=== PATIENT | male | born 1975 | race Caucasian/White ===

== ENCOUNTER 2016-12-27 09:39 | Inpatient (IN) | payer OTHER ==
[2016-12-27 10:54] VITALS: BMI 22.6
--- NOTE | 2016-12-27 12:40 | HP ---
COWS - Scale Resting Pulse: 0= [place] 80 or Below Sweatin= Chills/Flushing Restless Observation: 3= Extraneous Movement Pupil Size: 2= Moderately Dilated Bone or Joint Aches: 2= Severe Diffuse Aches Runny Nose/ Eye Tearin= Nasal Congestion GI Upset > 30mins: 1= Stomach Cramp Tremor Observation: 2= Slight Tremor Visible Yawning Observation: 2= >3x During Session Anxiety or Irritability: 2=Irritable/Anxious Goose Flesh Skin: 0=Smooth Skin COWS Score: 16 Admission ROS BHS - HPI Chief Complaint: DETOX TX FOR HEROIN DEPENDENCE Allergies/Adverse Reactions: Allergies Allergy/AdvReac Type Severity Reaction Status Date / Time No Known Allergies Allergy Verified 12/27/16 11:25 History of Present Illness: 41 Y/O H/M WITH A HX OF HEROIN AND COCAINE DEPENDENCE SEEKING DETOX TX Exam Limitations: No Limitations - Ebola screening Have you traveled outside of the country in the last 21 days: No Have you had contact with anyone from an Ebola affected area: No Have you been sick,other than usual withdrawal symptoms: No - Review of Systems Constitutional: Chills, Loss of Appetite, Night Sweats, Changes in sleep, Unintentional Wgt. Loss EENT: reports: Blurred Vision, Tearing, Nose Congestion, Dental Problems Respiratory: reports: No Symptoms reported Cardiac: reports: Lightheadedness GI: reports: Constipated, Diarrhea, Nausea, Poor Fluid Intake, Vomiting : reports: No Symptoms Reported Musculoskeletal: reports: Back Pain, Joint Pain, Muscle Pain Integumentary: reports: Bruising (RIGHT ELBOW IVD INJ SITE) Neuro: reports: Headache, Unsteady Gait, Dizziness Endocrine: reports: No Symptoms Reported Hematology: reports: No Symptoms Reported Psychiatric: reports: Orientated x3, Anxious Other Systems: Reviewed and Negative Patient History - Patient Medical History Hx Anemia: No Hx Asthma: No Hx Chronic Obstructive Pulmonary Disease (COPD): No Hx Cardiac Disorders: No Hx Hypertension: No Hx Hypercholesterolemia: No HX Cerebrovascular Accident: No Hx Seizures: No Hx Diabetes: No Hx Gastrointestinal Disorders: No Hx Genitourinary Disorders: No Hx Sexually Transmitted Disorders: No Hx Renal Disease (ESRD): No Hx Thyroid Disease: No Hx Human Immunodeficiency Virus (HIV): No (DENIES) Hx Hepatitis C: No Hx Depression: No Hx Suicide Attempt: No (DENIES) Hx Bipolar Disorder: No Hx Schizophrenia: No - Patient Surgical History Past Surgical History: No Hx Neurologic Surgery: No Hx Cataract Extraction: No Hx Cardiac Surgery: No Hx Lung Surgery: No Hx Breast Surgery: No Hx Breast Biopsy: No Hx Abdominal Surgery: No Hx Appendectomy: No Hx Cholecystectomy: No Hx Genitourinary Surgery: No Hx Orthopedic Surgery: No Anesthesia Reaction: No - PPD History Previous Implant?: Yes Documented Results: Negative w/o proof Implanted On Prior [facility] Admission?: No PPD to be Administered?: Yes - Reproductive History Patient is a Female of Child Bearing Age (11 -55 yrs old): No (MALE) - Smoking Cessation Smoking history: Current every day smoker Have you smoked in the past 12 months: Yes Aproximately how many cigarettes per day: 20 Hx Chewing Tobacco Use: No Initiated information on smoking cessation: Yes 'Breaking Loose' booklet given: 12/27/16 - Substance & Tx. History Hx Alcohol Use: No (DENIES) Hx Substance Use: Yes (HEROIN/COCAINE) Substance Use Type: Cocaine, Heroin Hx Substance Use Treatment: Yes ([facility]) - Substances Abused Heroin Route: Injection Frequency: Daily Amount used: 8 bags Age of first use: 16 Date of Last Use: 12/26/16 Family Disease History - Family Disease History Family History: Denies Admission Physical Exam BHS - Vital Signs Vital Signs: Vital Signs - 24 hr 12/27/16 10:53 Temperature 97.2 F L Pulse Rate 76 Respiratory 18 Rate Blood Pressure 140/73 - Physical General Appearance: Yes: Moderate Distress, Thin, Irritable, Anxious HEENTM: Yes: EOMI, Normocephalic, AGUS, Pharynx Normal, Nasal Congestion Respiratory: Yes: Chest Non-Tender, Lungs Clear, Normal Breath Sounds, No Respiratory Distress Neck: Yes: Supple, Trachea in good position Breast: Yes: Breast Exam Deferred Cardiology: Yes: Regular Rhythm, Regular Rate, S1, S2 Abdominal: Yes: Normal Bowel Sounds, Non Tender, Flat, Soft Genitourinary: Yes: Other (N/C) Back: Yes: Within Normal Limits Musculoskeletal: Yes: full range of Motion, Gait Steady Extremities: Yes: Normal Range of Motion, Non-Tender Neurological: Yes: [employer] II-XII NML intact, Fully Oriented, Alert Integumentary: Yes: Dry, Warm, Track Long (RIGHT ELBOW-) - Diagnostic (1) Opioid dependence with withdrawal Current Visit: Yes Status: Acute (2) Cocaine dependence, uncomplicated Current Visit: Yes Status: Acute (3) Track long due to intravenous drug abuse Current Visit: Yes Status: Acute Cleared for Admission [facility] - Detox or Rehab [facility] Level of Care: Medically Managed Detox Regimen/Protocol: Methadone [facility] Breath Alcohol Content Breath Alcohol Content: 0 Urine Drug Screen - Results Drug Screen Negative: No Urine Drug Screen Results: YAREYL-Cocaine, OPI-Opiates, MTD-Methadone
[2016-12-27] MEDS ORDERED: MAGNESIUM CITRATE 300 ML BOTTLE PO PRN (12:47)
[2016-12-27] MEDS ORDERED: diphenhydrAMINE HCL 50 MG CAPSULE PO PRN (12:47)
[2016-12-27] MEDS ORDERED: MAGNESIUM HYDROX 2400MG/30ML ORAL SUSPENSION 30 ML CUP PO PRN (12:47)
[2016-12-27] MEDS ORDERED: hydrOXYzine PAMOATE 25 MG CAPSULE (FP) PO PRN (12:47)
[2016-12-27] MEDS ORDERED: P-EPHED 60MG/TRIPROLIDI 2.5MG TABLET PO PRN (12:47)
[2016-12-27] MEDS ORDERED: NICOTINE POLACRILEX 4 MG GUM BUC PRN (12:47)
[2016-12-27] MEDS ORDERED: MENTHOL/PHENOL 1 EACH UD MM PRN (12:47)
[2016-12-27] MEDS ORDERED: ACETAMINOPHEN 325 MG TABLET (FP) PO PRN (12:47)
[2016-12-27] MEDS ORDERED: guaiFENesin/D-METHORPHAN HB 10 ML UNIT-DOSE CUPS PO PRN (12:47)
[2016-12-27] MEDS ORDERED: LOPERAMIDE HCL 2 MG CAPSULE PO PRN (12:47)
[2016-12-27] MEDS ORDERED: IBUPROFEN 400 MG TABLET (FP) PO PRN (12:47)
[2016-12-27] MEDS ORDERED: MAG HYDROX/AL HYDROX/SIMETH 30 ML UNIT-DOSE CUP PO PRN (12:47)
[2016-12-27] MEDS ORDERED: METHADONE HCL 10 MG TABLET (FOR DETOX USE ONLY) PO ONE ×2 (13:54→23:00)
[2016-12-27] MEDS: diazePAM 5 MG TABLET PO PRN ×2 (14:01→22:42)
[2016-12-27] MEDS: NICOTINE 21 MG/24 HOURS TOPICAL PATCH TD SCH (14:05)
[2016-12-27 19:10] LABS: URINE APPEARANCE CLEAR; URINE BILIRUBIN NEGATIVE (NEGATIVE); URINE BLOOD NEGATIVE (NEGATIVE); URINE COLOR YELLOW; URINE GLUCOSE (UA) NEGATIVE (NEGATIVE); URINE KETONE NEGATIVE (NEGATIVE); URINE LEUK ESTERASE NEGATIVE (NEGATIVE); URINE NITRITE NEGATIVE (NEGATIVE); URINE UROBILINOGEN 2.0 E.U/dl E.U./dl (0.2-1.0)
[2016-12-27 19:18] LABS: URINE PROTEIN 1+ (NEGATIVE)
[2016-12-27] MEDS: THIAMINE HCL 100 MG TABLET (FP) PO SCH (22:42)
[2016-12-28 09:50] LABS: MCH 28.9 pg (25.7-33.7); MCHC 33.2 g/dl (32.0-35.9); MEAN CELL VOLUME 87.1 fl (80-96); MEAN PLT VOLUME 8.9 fl (7.5-11.1); PLATELET COUNT 268 K/MM3 (134-434); WHITE BLOOD COUNT 10.9 K/mm3 (4.0-10.0)
[2016-12-28] MEDS ORDERED: METHADONE HCL 10 MG TABLET (FOR DETOX USE ONLY) PO ONE (10:00)
[2016-12-28] MEDS: PRENATAL VITAMINS W/ FOLIC ACID TABLET (FP) PO SCH (10:21)
[2016-12-28] MEDS: NICOTINE 21 MG/24 HOURS TOPICAL PATCH TD SCH (10:21)
[2016-12-28 10:23] LABS: ALBUMIN 4.1 g/dl (3.4-5.0); ALK PHOS 97 U/L (45-117); ANION GAP 10 (8-16); BILIRUBIN,TOTAL 0.8 mg/dL (0.2-1.0); CALCIUM 9.3 mg/dL (8.5-10.1); CO2 31 mmol/L (21-32); COCKROFT - GAULT 96.15; CREATININE 0.9 mg/dL (0.7-1.3); GLUCOSE,RANDOM 106 mg/dL (74-106); SGOT/AST 15 U/L (15-37); SGPT/ALT 17 U/L (12-78); TOT PROT 7.3 g/dl (6.4-8.2)
--- NOTE | 2016-12-28 10:28 | PN ---
BHS COWS - Scale Resting Pulse: 1= [place] 81-100 Sweatin= Chills/Flushing Restless Observation: 3= Extraneous Movement Pupil Size: 2= Moderately Dilated Bone or Joint Aches: 4=Acute Joint/Muscle Pain Runny Nose/ Eye Tearin= Nasal Congestion GI Upset > 30mins: 1= Stomach Cramp Tremor Observation of Outstretched Hands: 1= Tremor [place], Not Seen Yawning Observation: 1= 1-2x During Session Anxiety or Irritability: 1=Feels Anxious/Irritable Goose Flesh Skin: 0=Smooth Skin COWS Score: 16 S Progress Note (SOAP) Subjective: ANXIETY,SWEATS/CHILLS,FATIGUE. Objective: 12/28/16 10:29 Vital Signs Temperature 98.5 F 12/28/16 10:14 Pulse Rate 84 12/28/16 10:14 Respiratory Rate 20 12/28/16 10:14 Blood Pressure 140/93 12/28/16 10:14 O2 Sat by Pulse Oximetry (%) Laboratory Last Values WBC 10.9 K/mm3 (4.0-10.0) H 12/28/16 06:00 RBC 4.34 M/mm3 (4.00-5.60) 12/28/16 06:00 Hgb 12.5 GM/dL (11.7-16.9) 12/28/16 06:00 Hct 37.8 % (35.4-49) 12/28/16 06:00 MCV 87.1 fl (80-96) 12/28/16 06:00 MCHC 33.2 g/dl (32.0-35.9) 12/28/16 06:00 RDW 14.0 % (11.9-15.9) 12/28/16 06:00 Plt Count 268 K/MM3 (134-434) 12/28/16 06:00 MPV 8.9 fl (7.5-11.1) 12/28/16 06:00 Sodium 142 mmol/L (136-145) 12/28/16 06:00 Potassium 4.1 mmol/L (3.5-5.1) 12/28/16 06:00 Chloride 101 mmol/L (98-107) 12/28/16 06:00 Carbon Dioxide 31 mmol/L (21-32) 12/28/16 06:00 Anion Gap 10 (8-16) 12/28/16 06:00 BUN 14 mg/dL (7-18) 12/28/16 06:00 Creatinine 0.9 mg/dL (0.7-1.3) 12/28/16 06:00 Creat Clearance w eGFR > 60 (>60) 12/28/16 06:00 Random Glucose 106 mg/dL (74-106) 12/28/16 06:00 Calcium 9.3 mg/dL (8.5-10.1) 12/28/16 06:00 Total Bilirubin 0.8 mg/dL (0.2-1.0) 12/28/16 06:00 AST 15 U/L (15-37) 12/28/16 06:00 ALT 17 U/L (12-78) 12/28/16 06:00 Alkaline Phosphatase 97 U/L (45-117) 12/28/16 06:00 Total Protein 7.3 g/dl (6.4-8.2) 12/28/16 06:00 Albumin 4.1 g/dl (3.4-5.0) 12/28/16 06:00 Urine Color Yellow 12/27/16 15:00 Urine Appearance Clear 12/27/16 15:00 Urine pH 6.0 (5.0-8.0) 12/27/16 15:00 Ur Specific [place] 1.025 (1.005-1.025) 12/27/16 15:00 Urine Protein 1+ (NEGATIVE) H 12/27/16 15:00 Urine Glucose (UA) Negative (NEGATIVE) 12/27/16 15:00 Urine Ketones Negative (NEGATIVE) 12/27/16 15:00 Urine Blood Negative (NEGATIVE) 12/27/16 15:00 Urine Nitrite Negative (NEGATIVE) 12/27/16 15:00 Urine Bilirubin Negative (NEGATIVE) 12/27/16 15:00 Urine Urobilinogen 2.0 e.u/dl E.U./dl (0.2-1.0) 12/27/16 15:00 Ur Leukocyte Esterase Negative (NEGATIVE) 12/27/16 15:00 Assessment: 12/28/16 10:29 WITHDRAWAL SX Plan: CONTINUE DETOX
--- NOTE | 2016-12-28 11:23 | EKG ---
Test Reason : Blood Pressure : / mmHG Vent. Rate : 074 BPM Atrial Rate : 074 BPM P-R Int : 154 ms QRS Dur : 106 ms QT Int : 402 ms P-R-T Axes : 045 -35 039 degrees QTc Int : 446 ms NORMAL SINUS RHYTHM LEFT AXIS DEVIATION RSR' OR QR PATTERN IN V1 SUGGESTS RIGHT VENTRICULAR CONDUCTION DELAY ABNORMAL ECG NO PREVIOUS ECGS AVAILABLE Confirmed by MITCH PRESSLEY, JENELLE ([id number]) on 12/28/2016 11:22:33 AM Referred By: Confirmed By:JENELLE MEYER MD
[2016-12-28 15:27] LABS: URINE WBC <1 (3-5)
[2016-12-28 15:28] LABS: URINE BACTERIA RARE /hpf (NEGATIVE); URINE MUCUS MANY; URINE RBC 2 /hpf (0-3)
[2016-12-28] MEDS: diazePAM 5 MG TABLET PO PRN ×2 (17:17→22:11)
[2016-12-28] MEDS: THIAMINE HCL 100 MG TABLET (FP) PO SCH (22:11)
[2016-12-29] MEDS: diazePAM 5 MG TABLET PO PRN ×4 (05:50→22:15)
[2016-12-29 06:15] LABS: SICKLE CELL SCREEN NEGATIVE (NEGATIVE)
[2016-12-29] MEDS ORDERED: METHADONE HCL 5 MG TABLET (FOR DETOX USE ONLY) PO ONE (10:00)
[2016-12-29] MEDS: NICOTINE 21 MG/24 HOURS TOPICAL PATCH TD SCH (10:13)
[2016-12-29] MEDS: PRENATAL VITAMINS W/ FOLIC ACID TABLET (FP) PO SCH (10:13)
--- NOTE | 2016-12-29 11:00 | PN ---
BHS COWS - Scale Resting Pulse: 0= [place] 80 or Below Sweatin= Chills/Flushing Restless Observation: 3= Extraneous Movement Pupil Size: 2= Moderately Dilated Bone or Joint Aches: 4=Acute Joint/Muscle Pain Runny Nose/ Eye Tearin= Nasal Congestion GI Upset > 30mins: 1= Stomach Cramp Tremor Observation of Outstretched Hands: 1= Tremor [place], Not Seen Yawning Observation: 1= 1-2x During Session Anxiety or Irritability: 1=Feels Anxious/Irritable Goose Flesh Skin: 0=Smooth Skin COWS Score: 15 BHS Progress Note (SOAP) Subjective: ANXIETY,SWEATS,LESS FATIGUE. Objective: 12/29/16 11:00 Vital Signs Temperature 96.7 F L 12/29/16 09:45 Pulse Rate 69 12/29/16 09:45 Respiratory Rate 18 12/29/16 09:45 Blood Pressure 118/78 12/29/16 09:45 O2 Sat by Pulse Oximetry (%) Laboratory Last Values WBC 10.9 K/mm3 (4.0-10.0) H 12/28/16 06:00 RBC 4.34 M/mm3 (4.00-5.60) 12/28/16 06:00 Hgb 12.5 GM/dL (11.7-16.9) 12/28/16 06:00 Hct 37.8 % (35.4-49) 12/28/16 06:00 MCV 87.1 fl (80-96) 12/28/16 06:00 MCHC 33.2 g/dl (32.0-35.9) 12/28/16 06:00 RDW 14.0 % (11.9-15.9) 12/28/16 06:00 Plt Count 268 K/MM3 (134-434) 12/28/16 06:00 MPV 8.9 fl (7.5-11.1) 12/28/16 06:00 Sickle Cell Screen Negative (NEGATIVE) 12/28/16 06:00 Sodium 142 mmol/L (136-145) 12/28/16 06:00 Potassium 4.1 mmol/L (3.5-5.1) 12/28/16 06:00 Chloride 101 mmol/L (98-107) 12/28/16 06:00 Carbon Dioxide 31 mmol/L (21-32) 12/28/16 06:00 Anion Gap 10 (8-16) 12/28/16 06:00 BUN 14 mg/dL (7-18) 12/28/16 06:00 Creatinine 0.9 mg/dL (0.7-1.3) 12/28/16 06:00 Creat Clearance w eGFR > 60 (>60) 12/28/16 06:00 Random Glucose 106 mg/dL (74-106) 12/28/16 06:00 Calcium 9.3 mg/dL (8.5-10.1) 12/28/16 06:00 Total Bilirubin 0.8 mg/dL (0.2-1.0) 12/28/16 06:00 AST 15 U/L (15-37) 12/28/16 06:00 ALT 17 U/L (12-78) 12/28/16 06:00 Alkaline Phosphatase 97 U/L (45-117) 12/28/16 06:00 Total Protein 7.3 g/dl (6.4-8.2) 12/28/16 06:00 Albumin 4.1 g/dl (3.4-5.0) 12/28/16 06:00 Urine Color Yellow 12/27/16 15:00 Urine Appearance Clear 12/27/16 15:00 Urine pH 6.0 (5.0-8.0) 12/27/16 15:00 Ur Specific [place] 1.025 (1.005-1.025) 12/27/16 15:00 Urine Protein 1+ (NEGATIVE) H 12/27/16 15:00 Urine Glucose (UA) Negative (NEGATIVE) 12/27/16 15:00 Urine Ketones Negative (NEGATIVE) 12/27/16 15:00 Urine Blood Negative (NEGATIVE) 12/27/16 15:00 Urine Nitrite Negative (NEGATIVE) 12/27/16 15:00 Urine Bilirubin Negative (NEGATIVE) 12/27/16 15:00 Urine Urobilinogen 2.0 e.u/dl E.U./dl (0.2-1.0) 12/27/16 15:00 Ur Leukocyte Esterase Negative (NEGATIVE) 12/27/16 15:00 Urine RBC 2 /hpf (0-3) 12/27/16 15:00 Urine WBC <1 (3-5) 12/27/16 15:00 Ur Epithelial Cells Rare /HPF 12/27/16 15:00 Urine Bacteria Rare /hpf (NEGATIVE) 12/27/16 15:00 Urine Mucus Many 12/27/16 15:00 RPR Titer Nonreactive (NONREACTIVE) 12/28/16 06:00 Assessment: 12/29/16 11:00 WITHDRAWAL SX Plan: CONTINUE DETOX
[2016-12-29] MEDS: THIAMINE HCL 100 MG TABLET (FP) PO SCH (22:15)
[2016-12-30] MEDS: diazePAM 5 MG TABLET PO PRN ×2 (06:06→10:16)
[2016-12-30 09:27] VITALS: BP 107/73; PULSE 71; TEMP 96.6
[2016-12-30] MEDS ORDERED: METHADONE HCL 5 MG TABLET (FOR DETOX USE ONLY) PO ONE (10:00)
[2016-12-30] MEDS: PRENATAL VITAMINS W/ FOLIC ACID TABLET (FP) PO SCH (10:16)
[2016-12-30] MEDS: NICOTINE 21 MG/24 HOURS TOPICAL PATCH TD SCH (10:18)
--- NOTE | 2016-12-30 11:22 | DS ---
[facility] Detox Discharge Summary Admission Date: 12/27/16 Discharge Date: 12/30/16 - History Present History: Cocaine Dependence, Opioid Dependence Additional Comments: PT DECLINED TO CONTINUE WITH DETOX DUE TO PERSONAL REASONS.ALERT O X 3. NAD. Pertinent Past History: IVD TRACKS ON UPPER EXTREMITIES - Physical Exam Results Vital Signs: Vital Signs Temperature 96.6 F L 12/30/16 09:27 Pulse Rate 71 12/30/16 09:27 Respiratory Rate 18 12/30/16 09:27 Blood Pressure 107/73 12/30/16 09:27 O2 Sat by Pulse Oximetry (%) Pertinent Admission Physical Exam Findings: WITHDRAWAL SX Laboratory Last Values WBC 10.9 K/mm3 (4.0-10.0) H 12/28/16 06:00 RBC 4.34 M/mm3 (4.00-5.60) 12/28/16 06:00 Hgb 12.5 GM/dL (11.7-16.9) 12/28/16 06:00 Hct 37.8 % (35.4-49) 12/28/16 06:00 MCV 87.1 fl (80-96) 12/28/16 06:00 MCHC 33.2 g/dl (32.0-35.9) 12/28/16 06:00 RDW 14.0 % (11.9-15.9) 12/28/16 06:00 Plt Count 268 K/MM3 (134-434) 12/28/16 06:00 MPV 8.9 fl (7.5-11.1) 12/28/16 06:00 Sickle Cell Screen Negative (NEGATIVE) 12/28/16 06:00 Sodium 142 mmol/L (136-145) 12/28/16 06:00 Potassium 4.1 mmol/L (3.5-5.1) 12/28/16 06:00 Chloride 101 mmol/L (98-107) 12/28/16 06:00 Carbon Dioxide 31 mmol/L (21-32) 12/28/16 06:00 Anion Gap 10 (8-16) 12/28/16 06:00 BUN 14 mg/dL (7-18) 12/28/16 06:00 Creatinine 0.9 mg/dL (0.7-1.3) 12/28/16 06:00 Creat Clearance w eGFR > 60 (>60) 12/28/16 06:00 Random Glucose 106 mg/dL (74-106) 12/28/16 06:00 Calcium 9.3 mg/dL (8.5-10.1) 12/28/16 06:00 Total Bilirubin 0.8 mg/dL (0.2-1.0) 12/28/16 06:00 AST 15 U/L (15-37) 12/28/16 06:00 ALT 17 U/L (12-78) 12/28/16 06:00 Alkaline Phosphatase 97 U/L (45-117) 12/28/16 06:00 Total Protein 7.3 g/dl (6.4-8.2) 12/28/16 06:00 Albumin 4.1 g/dl (3.4-5.0) 12/28/16 06:00 Urine Color Yellow 12/27/16 15:00 Urine Appearance Clear 12/27/16 15:00 Urine pH 6.0 (5.0-8.0) 12/27/16 15:00 Ur Specific [place] 1.025 (1.005-1.025) 12/27/16 15:00 Urine Protein 1+ (NEGATIVE) H 12/27/16 15:00 Urine Glucose (UA) Negative (NEGATIVE) 12/27/16 15:00 Urine Ketones Negative (NEGATIVE) 12/27/16 15:00 Urine Blood Negative (NEGATIVE) 12/27/16 15:00 Urine Nitrite Negative (NEGATIVE) 12/27/16 15:00 Urine Bilirubin Negative (NEGATIVE) 12/27/16 15:00 Urine Urobilinogen 2.0 e.u/dl E.U./dl (0.2-1.0) 12/27/16 15:00 Ur Leukocyte Esterase Negative (NEGATIVE) 12/27/16 15:00 Urine RBC 2 /hpf (0-3) 12/27/16 15:00 Urine WBC <1 (3-5) 12/27/16 15:00 Ur Epithelial Cells Rare /HPF 12/27/16 15:00 Urine Bacteria Rare /hpf (NEGATIVE) 12/27/16 15:00 Urine Mucus Many 12/27/16 15:00 RPR Titer Nonreactive (NONREACTIVE) 12/28/16 06:00 - Treatment Hospital Course: Discharged Condition Good - Medication Discharge Medications: Ambulatory Orders NK [No Known Home Medication] 12/27/16 - Diagnosis (1) Opioid dependence with withdrawal Current Visit: Yes Status: Acute (2) Cocaine dependence, uncomplicated Current Visit: Yes Status: Acute (3) Track long due to intravenous drug abuse Current Visit: Yes Status: Acute - AMA Did Patient Leave Against Medical Advice: Yes ([facility])
[2016-12-31] MEDS ORDERED: METHADONE HCL 10 MG TABLET (FOR DETOX USE ONLY) PO ONE (10:00)
[2017-01-01] MEDS ORDERED: METHADONE HCL 5 MG TABLET (FOR DETOX USE ONLY) PO ONE (06:00)
== END 2016-12-30 11:04 | disposition left against medical advice (07) | DRG 770 ==
LOC: YASAS 09:39 → Y3N 13:18
PROVIDERS: ADMIT Internal Medicine Addiction Medicine; ATTEND Internal Medicine Addiction Medicine
PROC: HZ2ZZZZ Detoxification Services for Substance Abuse Treatment (ICD-10-PCS; principal; 2016-12-27)
DX: F11.23 Opioid dependence with withdrawal (principal); F14.20 Cocaine dependence, uncomplicated; F17.210 Nicotine dependence, cigarettes, uncomplicated
CPT/HCPCS: 36415; 80053; 81003; 81015; 85027; 85660; 86593; 93005; 93010

== ENCOUNTER 2017-07-06 13:44 | Inpatient (IN) | payer OTHER ==
[2017-07-06 16:33] VITALS: BMI 19.3
--- NOTE | 2017-07-06 20:07 | HP ---
COWS - Scale Resting Pulse: 1= [place] 81-100 Sweatin=Flushed/Facial Moisture Restless Observation: 1= Difficult to Sit Still Pupil Size: 1= Pupils >than Normal Bone or Joint Aches: 4=Acute Joint/Muscle Pain Runny Nose/ Eye Tearin= Runny Nose/Eyes GI Upset > 30mins: 3= Vomiting/Diarrhea (vomiting x 4, diarrhea x 3.) Tremor Observation: 2= Slight Tremor Visible Yawning Observation: 1= 1-2x During Session Anxiety or Irritability: 2=Irritable/Anxious Goose Flesh Skin: 0=Smooth Skin COWS Score: 19 Admission ROS S - [facility] Chief Complaint: Heroin and cocaine withdrawal symptoms Allergies/Adverse Reactions: Allergies Allergy/AdvReac Type Severity Reaction Status Date / Time No Known Allergies Allergy Verified 07/06/17 17:42 History of Present Illness: 41 years old male with a long history of heroin and cocaine dependence is admitted to detox. Patient has been in previous detox and reports 3 years of sobriety. Patient has past medical history of seizures and denies suicidal ideation. Exam Limitations: No Limitations - Ebola screening Have you traveled outside of the country in the last 21 days: No (N) Have you had contact with anyone from an Ebola affected area: No Have you been sick,other than usual withdrawal symptoms: No Do you have a fever: No - Review of Systems Constitutional: Chills, Malaise, Night Sweats, Weakness, Unintentional Wgt. Loss EENT: reports: No Symptoms Reported Respiratory: reports: Cough Cardiac: reports: No Symptoms Reported GI: reports: Diarrhea, Poor Appetite, Poor Fluid Intake, Vomiting, Abdominal cramping : reports: No Symptoms Reported Musculoskeletal: reports: Muscle Pain, Muscle Weakness Integumentary: reports: Sweating Neuro: reports: Tingling, Tremors, Weakness Endocrine: reports: Unexplained Weight Loss Psychiatric: reports: Orientated x3, Anxious Other Systems: Reviewed and Negative Patient History - Patient Medical History Hx Anemia: No Hx Asthma: No Hx Chronic Obstructive Pulmonary Disease (COPD): No Hx Cancer: No Hx Cardiac Disorders: No Hx Congestive Heart Failure: No Hx Hypertension: No Hx Hypercholesterolemia: No Hx Pacemaker: No HX Cerebrovascular Accident: No Hx Seizures: Yes (was on Dilantin ,stopped taking) Hx Dementia: No Hx Diabetes: No Hx Gastrointestinal Disorders: No Hx Liver Disease: No Hx Genitourinary Disorders: No Hx Sexually Transmitted Disorders: No Hx Renal Disease (ESRD): No Hx Thyroid Disease: No Hx Human Immunodeficiency Virus (HIV): No (Denies) Hx Hepatitis C: No Hx Depression: No Hx Suicide Attempt: No (Denies suicidal ideation) Hx Bipolar Disorder: No Hx Schizophrenia: No - Patient Surgical History Past Surgical History: No Hx Neurologic Surgery: No Hx Cataract Extraction: No Hx Cardiac Surgery: No Hx Lung Surgery: No Hx Breast Surgery: No Hx Breast Biopsy: No Hx Abdominal Surgery: No Hx Appendectomy: No Hx Cholecystectomy: No Hx Genitourinary Surgery: No Hx Section: No Hx Orthopedic Surgery: No Anesthesia Reaction: No - PPD History Previous Implant?: Yes Documented Results: Negative w/proof Implanted On Prior [facility] Admission?: Yes Date: 12/29/16 PPD to be Administered?: No - Reproductive History Patient is a Female of Child Bearing Age (11 -55 yrs old): No (MALE) - Smoking Cessation Smoking history: Current every day smoker Have you smoked in the past 12 months: Yes Aproximately how many cigarettes per day: 10 Hx Chewing Tobacco Use: No Initiated information on smoking cessation: Yes 'Breaking Loose' booklet given: 07/06/17 - Substance & Tx. History Hx Alcohol Use: No Hx Substance Use: Yes Substance Use Type: Cocaine, Heroin Hx Substance Use Treatment: Yes ([facility] 12/2016) - Substances Abused Heroin Route: Injection Frequency: Daily Amount used: 8 BAGS Age of first use: 15 Date of Last Use: 07/06/17 Cocaine Route: Injection Frequency: Daily Amount used: 8 BAGS Age of first use: 15 Date of Last Use: 07/06/17 Family Disease History - Family Disease History Family History: Denies Admission Physical Exam S - Vital Signs Vital Signs: Vital Signs - 24 hr 07/06/17 16:32 Temperature 96.2 F L Pulse Rate 89 Respiratory 18 Rate Blood Pressure 121/72 - Physical General Appearance: Yes: Moderate Distress, Thin, Tremorous, Irritable, Sweating , Anxious HEENTM: Yes: EOMI, AGUS Respiratory: Yes: Lungs Clear, Normal Breath Sounds, No Respiratory Distress Neck: Yes: Supple Breast: Yes: Breast Exam Deferred Cardiology: Yes: Regular Rhythm, Regular Rate, S1, S2 Genitourinary: Yes: Within Normal Limits Back: Yes: Within Normal Limits Musculoskeletal: Yes: Muscle Pain, Muscle weakness Extremities: Yes: Tremors Neurological: Yes: Fully Oriented, Alert, Normal Response Integumentary: Yes: Dry, Track [place] ( left neck, both hands,) Lymphatic: Yes: Within Normal Limits - Diagnostic (1) Seizure Current Visit: No Status: Chronic (2) Cocaine dependence, uncomplicated Current Visit: Yes Status: Chronic (3) Opioid dependence with withdrawal Current Visit: Yes Status: Chronic Cleared for Admission [facility] - Detox or Rehab [facility] Level of Care: Medically Managed Detox Regimen/Protocol: Methadone [facility] Breath Alcohol Content Breath Alcohol Content: 0 Urine Drug Screen - Results Drug Screen Negative: No Urine Drug Screen Results: YARELY-Cocaine, OPI-Opiates
[2017-07-06] MEDS ORDERED: ACETAMINOPHEN 325 MG TABLET (FP) PO PRN (20:19)
[2017-07-06] MEDS ORDERED: P-EPHED 60MG/TRIPROLIDI 2.5MG TABLET PO PRN (20:19)
[2017-07-06] MEDS ORDERED: MAGNESIUM HYDROX 2400MG/30ML ORAL SUSPENSION 30 ML CUP PO PRN (20:19)
[2017-07-06] MEDS ORDERED: MAG HYDROX/AL HYDROX/SIMETH 30 ML UNIT-DOSE CUP PO PRN (20:19)
[2017-07-06] MEDS ORDERED: LOPERAMIDE HCL 2 MG CAPSULE PO PRN (20:19)
[2017-07-06] MEDS ORDERED: METHADONE HCL 10 MG TABLET (FOR DETOX USE ONLY) PO ONE ×2 (20:19→23:00)
[2017-07-06] MEDS ORDERED: hydrOXYzine PAMOATE 50 MG CAPSULE (FP) PO PRN (20:19)
[2017-07-06] MEDS ORDERED: MAGNESIUM CITRATE 300 ML BOTTLE PO PRN (20:19)
[2017-07-06] MEDS ORDERED: IBUPROFEN 400 MG TABLET (FP) PO PRN (20:19)
[2017-07-06] MEDS ORDERED: NICOTINE POLACRILEX 2 MG GUM BC PRN (20:19)
[2017-07-06] MEDS: diazePAM 5 MG TABLET PO PRN (20:49)
[2017-07-06] MEDS: THIAMINE HCL 100 MG TABLET (FP) PO SCH (23:09)
[2017-07-07] MEDS ORDERED: TRIMETHOBENZAMIDE HCL 200MG/2ML INJ IM ONE (07:22)
[2017-07-07] MEDS ORDERED: METHADONE HCL 10 MG TABLET (FOR DETOX USE ONLY) PO ONE (10:00)
[2017-07-07 10:22] LABS: MCH 27.4 pg (25.7-33.7); MCHC 32.3 g/dl (32.0-35.9); MEAN CELL VOLUME 84.9 fl (80-96); MEAN PLT VOLUME 7.3 fl (7.5-11.1); PLATELET COUNT 478 K/MM3 (134-434); RDW 14.7 % (11.9-15.9); WHITE BLOOD COUNT 11.6 K/mm3 (4.0-10.0)
[2017-07-07] MEDS: PHENYTOIN NA EXTENDED 100 MG CAPSULE (FP) PO SCH (10:48)
[2017-07-07] MEDS: diazePAM 5 MG TABLET PO PRN ×2 (10:48→16:49)
[2017-07-07] MEDS: PRENATAL VITAMINS W/ FOLIC ACID TABLET (FP) PO SCH (10:48)
[2017-07-07] MEDS: NICOTINE 14 MG/24 HOURS TOPICAL PATCH TD SCH (10:49)
[2017-07-07] MEDS: guaiFENesin/D-METHORPHAN HB 10 ML UNIT-DOSE CUPS PO PRN ×2 (10:49→16:49)
[2017-07-07 11:23] LABS: ALBUMIN 3.1 g/dl (3.4-5.0); ALK PHOS 101 U/L (45-117); ANION GAP 7 (8-16); BILIRUBIN,TOTAL 0.8 mg/dL (0.2-1.0); CALCIUM 8.5 mg/dL (8.5-10.1); CO2 31 mmol/L (21-32); CREATININE 0.8 mg/dL (0.7-1.3); GLUCOSE,RANDOM 80 mg/dL (74-106); SGOT/AST 90 U/L (15-37); SGPT/ALT 171 U/L (12-78); TOT PROT 8.2 g/dl (6.4-8.2)
--- NOTE | 2017-07-07 12:37 | EKG ---
Test Reason : Blood Pressure : / mmHG Vent. Rate : 079 BPM Atrial Rate : 079 BPM P-R Int : 158 ms QRS Dur : 090 ms QT Int : 406 ms P-R-T Axes : 070 051 056 degrees QTc Int : 465 ms NORMAL SINUS RHYTHM POSSIBLE LEFT ATRIAL ENLARGEMENT BORDERLINE ECG WHEN COMPARED WITH ECG OF 27-DEC-2016 13:11, NO SIGNIFICANT CHANGE WAS FOUND Confirmed by ROBERT NEWTON MD ([id number]) on 07/07/2017 12:37:43 PM Referred By: Confirmed By:ROBERT NEWTON MD
[2017-07-07] MEDS: MENTHOL/PHENOL 1 EACH UD MM PRN (14:54)
--- NOTE | 2017-07-07 15:11 | PN ---
BHS COWS - Scale Resting Pulse: 2= [place] 101-120 Sweatin= Chills/Flushing Restless Observation: 1= Difficult to Sit Still Pupil Size: 0= Normal to Room Light Bone or Joint Aches: 0= None Runny Nose/ Eye Tearin= None GI Upset > 30mins: 1= Stomach Cramp Tremor Observation of Outstretched Hands: 2= Slight Tremor Visible Yawning Observation: 1= 1-2x During Session Anxiety or Irritability: 2=Irritable/Anxious Goose Flesh Skin: 3=Piloerection COWS Score: 13 BHS Progress Note (SOAP) Subjective: Interrupted Sleep, Stomach Cramping, H/A, Anxious, Vomiting. Objective: PT. A & O X 3, OBSERVED AMBULATING ON UNIT. NO ACUTE DISTRESS. 07/07/17 15:07 Vital Signs Temperature 96.6 F L 07/07/17 13:29 Pulse Rate 94 H 07/07/17 13:29 Respiratory Rate 20 07/07/17 13:29 Blood Pressure 123/86 07/07/17 13:29 O2 Sat by Pulse Oximetry (%) Laboratory Tests 07/07/17 07/07/17 07/07/17 04:00 04:00 04:00 WBC 11.6 H RBC 4.58 Hgb 12.5 Hct 38.9 MCV 84.9 MCH 27.4 MCHC 32.3 RDW 14.7 Plt Count 478 H D MPV 7.3 L D Sodium 132 L Potassium 4.4 Chloride 94 L Carbon Dioxide 31 Anion Gap 7 L BUN 16 Creatinine 0.8 Creat Clearance w eGFR > 60 Random Glucose 80 D Calcium 8.5 Total Bilirubin 0.8 AST 90 H D ALT 171 H D Alkaline Phosphatase 101 Total Protein 8.2 Albumin 3.1 L D RPR Titer Nonreactive LABS NOTED. UA RESULTS PENDING. 07/07/17 15:11 Assessment: 07/07/17 15:08 WITHDRAWAL SYMPTOMS. LEUKOCYTOSIS. 07/07/17 15:12 Plan: CONTINUE DETOX. REPEAT AST, ALT ON 07/09/2017 FOR ELEVATED ADMISSION LEVELS. INCREASE DAILY PO FLUID INTAKE. PRN ZOFRAN SL FOR NAUSEA / VOMITING.
[2017-07-07] MEDS: THIAMINE HCL 100 MG TABLET (FP) PO SCH (23:39)
[2017-07-08] MEDS: guaiFENesin/D-METHORPHAN HB 10 ML UNIT-DOSE CUPS PO PRN ×3 (05:28→22:27)
[2017-07-08] MEDS: diazePAM 5 MG TABLET PO PRN ×3 (05:28→17:28)
[2017-07-08] MEDS: PHENYTOIN NA EXTENDED 100 MG CAPSULE (FP) PO SCH (07:48)
[2017-07-08] MEDS ORDERED: METHADONE HCL 5 MG TABLET (FOR DETOX USE ONLY) PO ONE (10:00)
[2017-07-08] MEDS: NICOTINE 14 MG/24 HOURS TOPICAL PATCH TD SCH (10:34)
[2017-07-08] MEDS: PRENATAL VITAMINS W/ FOLIC ACID TABLET (FP) PO SCH (10:34)
--- NOTE | 2017-07-08 14:16 | PN ---
BHS COWS - Scale Resting Pulse: 2= [place] 101-120 Sweatin= Chills/Flushing Restless Observation: 0= Sits Still Pupil Size: 0= Normal to Room Light Bone or Joint Aches: 0= None Runny Nose/ Eye Tearin= Nasal Congestion GI Upset > 30mins: 3= Vomiting/Diarrhea Tremor Observation of Outstretched Hands: 2= Slight Tremor Visible Yawning Observation: 2= >3x During Session Anxiety or Irritability: 2=Irritable/Anxious Goose Flesh Skin: 0=Smooth Skin COWS Score: 13 BHS Progress Note (SOAP) Subjective: Interrupted Sleep, Fatigue, Tremors, Vomiting, Anxious. Objective: PT. A & O X 2 (UNCERTAIN ABOUT DAY / DATE). PT. OBSERVED AMBULATING ON UNIT. NO ACUTE DISTRESS. 07/08/17 14:12 Vital Signs Temperature 97.9 F 07/08/17 10:22 Pulse Rate 103 H 07/08/17 10:22 Respiratory Rate 18 07/08/17 10:22 Blood Pressure 139/90 07/08/17 10:22 O2 Sat by Pulse Oximetry (%) Laboratory Tests 07/07/17 07/07/17 07/07/17 04:00 04:00 04:00 WBC 11.6 H RBC 4.58 Hgb 12.5 Hct 38.9 MCV 84.9 MCH 27.4 MCHC 32.3 RDW 14.7 Plt Count 478 H D MPV 7.3 L D Sodium 132 L Potassium 4.4 Chloride 94 L Carbon Dioxide 31 Anion Gap 7 L BUN 16 Creatinine 0.8 Creat Clearance w eGFR > 60 Random Glucose 80 D Calcium 8.5 Total Bilirubin 0.8 AST 90 H D ALT 171 H D Alkaline Phosphatase 101 Total Protein 8.2 Albumin 3.1 L D RPR Titer Nonreactive LABS NOTED. UA RESULTS PENDING. 07/08/17 14:15 Assessment: 07/08/17 14:13 WITHDRAWAL SYMPTOMS. Plan: CONTINUE DETOX. PRN ZOFRAN SL FOR NAUSEA / VOMITING. INCREASE DAILY PO FLUID INTAKE.
[2017-07-08 17:15] LABS: URINE APPEARANCE SLCLOUDY; URINE BILIRUBIN NEGATIVE (NEGATIVE); URINE BLOOD NEGATIVE (NEGATIVE); URINE COLOR AMBER; URINE GLUCOSE (UA) NEGATIVE (NEGATIVE); URINE KETONE NEGATIVE (NEGATIVE); URINE NITRITE NEGATIVE (NEGATIVE); URINE PROTEIN NEGATIVE (NEGATIVE)
[2017-07-08 20:58] LABS: URINE LEUK ESTERASE Negative (NEGATIVE)
[2017-07-08] MEDS: THIAMINE HCL 100 MG TABLET (FP) PO SCH (22:06)
[2017-07-09] MEDS: PHENYTOIN NA EXTENDED 100 MG CAPSULE (FP) PO SCH (07:34)
[2017-07-09] MEDS: guaiFENesin/D-METHORPHAN HB 10 ML UNIT-DOSE CUPS PO PRN ×2 (07:35→14:50)
[2017-07-09] MEDS: ONDANSETRON *ODT* 4 MG TABLET SL PRN ×2 (07:35→15:31)
[2017-07-09] MEDS ORDERED: METHADONE HCL 5 MG TABLET (FOR DETOX USE ONLY) PO ONE (10:00)
[2017-07-09] MEDS: PRENATAL VITAMINS W/ FOLIC ACID TABLET (FP) PO SCH (10:02)
[2017-07-09] MEDS: diazePAM 5 MG TABLET PO PRN ×2 (10:02→17:43)
[2017-07-09] MEDS: NICOTINE 14 MG/24 HOURS TOPICAL PATCH TD SCH (10:03)
--- NOTE | 2017-07-09 14:42 | PN ---
[facility] Progress Note (SOAP) Subjective: Anxious, Interrupted Sleep, Vomiting, Anxious. Objective: PT. A & O X 3, OBSERVED AMBULATING ON UNIT. NO ACUTE DISTRESS. 07/09/17 14:41 Vital Signs Temperature 97.4 F L 07/09/17 14:27 Pulse Rate 92 H 07/09/17 14:27 Respiratory Rate 20 07/09/17 14:27 Blood Pressure 128/79 07/09/17 14:27 O2 Sat by Pulse Oximetry (%) Laboratory Tests 07/07/17 07/07/17 07/07/17 04:00 04:00 04:00 WBC 11.6 H RBC 4.58 Hgb 12.5 Hct 38.9 MCV 84.9 MCH 27.4 MCHC 32.3 RDW 14.7 Plt Count 478 H D MPV 7.3 L D Sodium 132 L Potassium 4.4 Chloride 94 L Carbon Dioxide 31 Anion Gap 7 L BUN 16 Creatinine 0.8 Creat Clearance w eGFR > 60 Random Glucose 80 D Calcium 8.5 Total Bilirubin 0.8 AST 90 H D ALT 171 H D Alkaline Phosphatase 101 Total Protein 8.2 Albumin 3.1 L D Urine Color Urine Appearance Urine pH Ur Specific [place] Urine Protein Urine Glucose (UA) Urine Ketones Urine Blood Urine Nitrite Urine Bilirubin Urine Urobilinogen Ur Leukocyte Esterase RPR Titer Nonreactive 07/08/17 15:00 WBC RBC Hgb Hct MCV MCH MCHC RDW Plt Count MPV Sodium Potassium Chloride Carbon Dioxide Anion Gap BUN Creatinine Creat Clearance w eGFR Random Glucose Calcium Total Bilirubin AST ALT Alkaline Phosphatase Total Protein Albumin Urine Color [place] Urine Appearance Slcloudy Urine pH 5.0 Ur Specific [place] 1.024 Urine Protein Negative Urine Glucose (UA) Negative Urine Ketones Negative Urine Blood Negative Urine Nitrite Negative Urine Bilirubin Negative Urine Urobilinogen 2.0 Ur Leukocyte Esterase Negative RPR Titer LABS NOTED. Assessment: 07/09/17 14:41 WITHDRAWAL SYMPTOMS. Plan: CONTINUE DETOX. PRN ZOFRAN SL FOR VOMITING. INCREASE DAILY PO FLUID INTAKE.
[2017-07-09] MEDS: THIAMINE HCL 100 MG TABLET (FP) PO SCH (22:37)
[2017-07-10] MEDS: PHENYTOIN NA EXTENDED 100 MG CAPSULE (FP) PO SCH (06:20)
[2017-07-10] MEDS ORDERED: METHADONE HCL 10 MG TABLET (FOR DETOX USE ONLY) PO ONE (10:00)
[2017-07-10] MEDS: PRENATAL VITAMINS W/ FOLIC ACID TABLET (FP) PO SCH (10:21)
[2017-07-10] MEDS: NICOTINE 14 MG/24 HOURS TOPICAL PATCH TD SCH (10:22)
[2017-07-10 10:43] LABS: SGOT/AST 163 U/L (15-37); SGPT/ALT 222 U/L (12-78)
[2017-07-10] MEDS: guaiFENesin/D-METHORPHAN HB 10 ML UNIT-DOSE CUPS PO PRN (11:38)
[2017-07-10 13:02] LABS: BASOPHIL 0.7 % (0-2.0); MCH 27.2 pg (25.7-33.7); MCHC 31.5 g/dl (32.0-35.9); MEAN CELL VOLUME 86.3 fl (80-96); MEAN PLT VOLUME 7.4 fl (7.5-11.1); NEUTROPHILS 68.6 % (42.8-82.8); PLATELET COUNT 473 K/MM3 (134-434); RDW 14.6 % (11.9-15.9)
[2017-07-10] MEDS: MENTHOL/PHENOL 1 EACH UD MM PRN (15:21)
--- NOTE | 2017-07-10 15:36 | PN ---
[facility] Progress Note (SOAP) Subjective: Weakness, lightheadedness, chills, sweating, interrupted sleep Objective: 07/10/17 15:33 Last Vital Signs Temp Pulse Resp BP Pulse Ox 97.2 F L 96 H 18 118/83 07/10/17 14:54 07/10/17 14:54 07/10/17 14:54 07/10/17 14:54 Laboratory Tests 07/07/17 07/07/17 07/07/17 04:00 04:00 04:00 WBC 11.6 H RBC 4.58 Hgb 12.5 Hct 38.9 MCV 84.9 MCH 27.4 MCHC 32.3 RDW 14.7 Plt Count 478 H D MPV 7.3 L D Neutrophils % Lymphocytes % Monocytes % Eosinophils % Basophils % Sodium 132 L Potassium 4.4 Chloride 94 L Carbon Dioxide 31 Anion Gap 7 L BUN 16 Creatinine 0.8 Creat Clearance w eGFR > 60 Random Glucose 80 D Calcium 8.5 Total Bilirubin 0.8 AST 90 H D ALT 171 H D Alkaline Phosphatase 101 Total Protein 8.2 Albumin 3.1 L D Urine Color Urine Appearance Urine pH Ur Specific [place] Urine Protein Urine Glucose (UA) Urine Ketones Urine Blood Urine Nitrite Urine Bilirubin Urine Urobilinogen Ur Leukocyte Esterase RPR Titer Nonreactive 07/08/17 07/10/17 07/10/17 15:00 07:15 12:30 WBC 12.0 H RBC 4.94 Hgb 13.4 Hct 42.6 MCV 86.3 MCH 27.2 MCHC 31.5 L RDW 14.6 Plt Count 473 H MPV 7.4 L Neutrophils % 68.6 Lymphocytes % 21.3 Monocytes % 8.4 Eosinophils % 1.0 Basophils % 0.7 Sodium Potassium Chloride Carbon Dioxide Anion Gap BUN Creatinine Creat Clearance w eGFR Random Glucose Calcium Total Bilirubin AST 163 H D ALT 222 H D Alkaline Phosphatase Total Protein Albumin Urine Color [place] Urine Appearance Slcloudy Urine pH 5.0 Ur Specific [place] 1.024 Urine Protein Negative Urine Glucose (UA) Negative Urine Ketones Negative Urine Blood Negative Urine Nitrite Negative Urine Bilirubin Negative Urine Urobilinogen 2.0 Ur Leukocyte Esterase Negative RPR Titer Labs noted: elevated AST/ALT and elevated wbc Assessment: 07/10/17 15:34 Withdrawal symptoms Noted with elevated LFTs and leukocytosis Plan: Continue detox Encouraged to drink lots of water (water pitcher ordered) Elevated LFTs: possibly r/t hepatitis (patient denies any history of hepatitis) ; repeat LFTs and hepatitis A and C Ab in AM Leukocytosis: asymptomatic for infection, repeat CBC in AM
[2017-07-10 22:21] VITALS: PULSE 81
[2017-07-10] MEDS: THIAMINE HCL 100 MG TABLET (FP) PO SCH (22:36)
[2017-07-11] MEDS ORDERED: METHADONE HCL 5 MG TABLET (FOR DETOX USE ONLY) PO ONE (06:00)
[2017-07-11] MEDS: PHENYTOIN NA EXTENDED 100 MG CAPSULE (FP) PO SCH (06:40)
[2017-07-11 06:41] VITALS: BP 124/76; TEMP 98.2
[2017-07-11] MEDS: PRENATAL VITAMINS W/ FOLIC ACID TABLET (FP) PO SCH (10:32)
[2017-07-11] MEDS: NICOTINE 14 MG/24 HOURS TOPICAL PATCH TD SCH (10:32)
--- NOTE | 2017-07-11 12:09 | DS ---
[facility] Detox Discharge Summary Admission Date: 07/06/17 Discharge Date: 07/11/17 - History Present History: Cocaine Dependence, Opioid Dependence Additional Comments: PATIENT REPORTS THAT HE WILL SEEK OUT MMTP PROGRAM ON HIS OWN AFTER DISCHARGE FROM DETOX. PATIENT ALSO ADVISED TO FOLLOW-UP WITH SERVICING MANAGER [place]EL [place] ( PATIENT COULD NOT REMEMBER SERVICING MANAGER'S FULL NAME AFTER DISCHARGE FROM DETOX FOR MEDICAL ASSESSMENT AND FOR HISTORY OF SEIZURES AND FOR ELEVATED LIVER ENZYME VALUES DRAWN WHILE ADMITTED FOR DETOX. COPIES OF ALL LABS DRAWN WHILE ADMITTED FOR DETOX GIVEN TO PATIENT AT TIME OF DISCHARGE. WHEN ASKED IF HE WISHED TO HAVE FOLLOW-UP PRESCRIPTION FOR DISCHARGE MEDICATION (DILANTIN) SENT TO HIS HOME PHARMACY, PATIENT DECLINED, STATING THAT HE CURRENTLY HAS AN ADEQUATE SUPPLY OF THE MEDICATION AT HOME. PATIENT WAS DISCHARGED FROM DETOX UNIT IN STABLE MEDICAL CONDITION. Pertinent Past History: History of Seizures. - Physical Exam Results Vital Signs: Vital Signs Temperature 98.2 F 07/11/17 06:40 Pulse Rate 81 07/11/17 06:40 Respiratory Rate 18 07/11/17 06:40 Blood Pressure 124/76 07/11/17 06:40 O2 Sat by Pulse Oximetry (%) Pertinent Admission Physical Exam Findings: WITHDRAWAL SYMPTOMS. Laboratory Tests 07/07/17 07/07/17 07/07/17 04:00 04:00 04:00 WBC 11.6 H RBC 4.58 Hgb 12.5 Hct 38.9 MCV 84.9 MCH 27.4 MCHC 32.3 RDW 14.7 Plt Count 478 H D MPV 7.3 L D Neutrophils % Lymphocytes % Monocytes % Eosinophils % Basophils % Sodium 132 L Potassium 4.4 Chloride 94 L Carbon Dioxide 31 Anion Gap 7 L BUN 16 Creatinine 0.8 Creat Clearance w eGFR > 60 Random Glucose 80 D Calcium 8.5 Total Bilirubin 0.8 AST 90 H D ALT 171 H D Alkaline Phosphatase 101 Total Protein 8.2 Albumin 3.1 L D Urine Color Urine Appearance Urine pH Ur Specific [place] Urine Protein Urine Glucose (UA) Urine Ketones Urine Blood Urine Nitrite Urine Bilirubin Urine Urobilinogen Ur Leukocyte Esterase RPR Titer Nonreactive 07/08/17 07/10/17 07/10/17 15:00 07:15 12:30 WBC 12.0 H RBC 4.94 Hgb 13.4 Hct 42.6 MCV 86.3 MCH 27.2 MCHC 31.5 L RDW 14.6 Plt Count 473 H MPV 7.4 L Neutrophils % 68.6 Lymphocytes % 21.3 Monocytes % 8.4 Eosinophils % 1.0 Basophils % 0.7 Sodium Potassium Chloride Carbon Dioxide Anion Gap BUN Creatinine Creat Clearance w eGFR Random Glucose Calcium Total Bilirubin AST 163 H D ALT 222 H D Alkaline Phosphatase Total Protein Albumin Urine Color [place] Urine Appearance Slcloudy Urine pH 5.0 Ur Specific [place] 1.024 Urine Protein Negative Urine Glucose (UA) Negative Urine Ketones Negative Urine Blood Negative Urine Nitrite Negative Urine Bilirubin Negative Urine Urobilinogen 2.0 Ur Leukocyte Esterase Negative RPR Titer LABS NOTED. - Treatment Hospital Course: Detox Protocol Followed, Detoxed Safely, Responded well, Discharged Condition Good Patient has Accepted a Rehab Referral to: NO. PT WILL PURSUE [facility] PROGRAM ON HIS OWN FOR AFTERCARE. - Medication Discharge Medications: Ambulatory Orders Phenytoin Na Extended [Dilantin -] 300 mg PO AM 07/06/17 - Diagnosis (1) Cocaine dependence, uncomplicated Status: Acute (2) Opioid dependence with withdrawal Status: Acute (3) Seizure Status: Chronic - AMA Did Patient Leave Against Medical Advice: No
== END 2017-07-11 08:55 | disposition home or self-care (01) | DRG 773 ==
LOC: YASAS 13:44 → Y3N 19:28
PROVIDERS: ADMIT Internal Medicine; ATTEND Internal Medicine
PROC: HZ2ZZZZ Detoxification Services for Substance Abuse Treatment (ICD-10-PCS; principal; 2017-07-06)
DX: F11.23 Opioid dependence with withdrawal (principal); F14.20 Cocaine dependence, uncomplicated; G40.909 Epilepsy, unspecified, not intractable, without status epilepticus
CPT/HCPCS: 36415; 80053; 81003; 84450; 84460; 85025; 85027; 86593; 93005; 93010